=== PATIENT | female | born 1945 | race Caucasian/White ===

== ENCOUNTER 2017-08-31 15:34 | Emergency (ER) | payer MEDICARE ==
[2017-08-31 16:04] VITALS: TEMP 97.4
[2017-08-31] MEDS ORDERED: RX INFO: IV CONTRAST WAS GIVEN 1 EACH MISC MISCELLANE PRN (16:21)
[2017-08-31 16:48] LABS: Basophils # (A) 0.1 k/uL (0-0.2); Basophils % (A) 1 %; Eosinophils # (A) 0.3 k/uL (0-0.7); Eosinophils % (A) 4 %; HCT 46.8 % (34.0-46.0); HGB 15.1 gm/dL (11.4-16.0); Lymphocytes # (A) 1.9 k/uL (1.0-4.8); Lymphocytes % (A) 25 %; MCH 30.3 pg (25.0-35.0); MCHC 32.3 g/dL (31.0-37.0); MCV 93.9 fL (80.0-100.0); Mean Platelet Volume 7.8; Monocytes # (A) 0.4 k/uL (0-1.0); Monocytes % (A) 5 %; Neutrophils # (A) 4.7 k/uL (1.3-7.7); Neutrophils % (A) 63 %; Platelet Count 261 k/uL (150-450); RBC 4.98 m/uL (3.80-5.40); RDW 12.9 % (11.5-15.5); WBC 7.5 k/uL (3.8-10.6)
[2017-08-31 16:50] LABS: ALT 31 U/L (9-52); AST 32 U/L (14-36); Albumin 4.5 g/dL (3.5-5.0); Alkaline Phosphatase 133 U/L (38-126); Anion Gap 10 mmol/L; Blood Urea Nitrogen 25 mg/dL (7-17); Calcium 9.8 mg/dL (8.4-10.2); Carbon Dioxide 33 mmol/L (22-30); Chloride 99 mmol/L (98-107); Glucose 96 mg/dL (74-99); Potassium 3.7 mmol/L (3.5-5.1); Sodium 142 mmol/L (137-145); Total Bilirubin 1.5 mg/dL (0.2-1.3); Total Protein 7.7 g/dL (6.3-8.2)
[2017-08-31 16:54] LABS: D-Dimer 0.89 mg/L FEU (<0.60); Partial Thromboplastin Time 23.1 sec (22.0-30.0); Prothrombin Time 9.5 sec (9.0-12.0)
--- NOTE | 2017-08-31 16:54 | ED ---
General Adult HPI - General Chief complaint: Recheck/Abnormal Lab/Rx Stated complaint: Abn Labs Time Seen by Provider: 08/31/17 16:08 Source: patient, RN notes reviewed Mode of arrival: ambulatory Limitations: no limitations - History of Present Illness Initial comments: 72-year-old female presents emergency Department for abnormal labs. Patient states she went to her primary care physician's office yesterday that she's having some shortness of breath exertional shortness breath and had some chest pain a few days prior. Patient saw her primary care physician had laboratory, EKG and told that she was fine. Patient states that she has had some right leg swelling above her knee but states his been there for several weeks states it initially started in the popliteal region. Patient states she's had no prior DVTs. Patient states she was called and told that her lab was concerning for possible blood clot. Patient states she does not note this meant. Patient states that she does feel better today. She does admit that she is under a large amount of stress that she's had multiple problems at her household, other issues. - Related Data Home Medications Medication Instructions Recorded Confirmed Aspirin EC [Ecotrin Low Dose] 81 mg PO DAILY 08/31/17 08/31/17 Diazepam [Valium] 5 mg PO DAILY 08/31/17 08/31/17 Hydrochlorothiazide [Hydrodiuril] 25 mg PO DAILY 08/31/17 08/31/17 Allergies Allergy/AdvReac Type Severity Reaction Status Date / Time No Known Allergies Allergy Verified 08/31/17 16:37 Review of Systems ROS Statement: Those systems with pertinent positive or pertinent negative responses have been documented in the HPI. ROS Other: All systems not noted in ROS Statement are negative. Past Medical History Past Medical History: Hypertension History of Any Multi-Drug Resistant Organisms: None Reported Past Psychological History: No Psychological Hx Reported Smoking Status: Never smoker Past Alcohol Use History: None Reported Past Drug Use History: None Reported General Exam Limitations: no limitations General appearance: alert, in no apparent distress Head exam: Present: atraumatic, normocephalic, normal inspection Neck exam: Present: normal inspection. Absent: tenderness, meningismus, lymphadenopathy Respiratory exam: Present: normal lung sounds bilaterally. Absent: respiratory distress, wheezes, rales, rhonchi, stridor Cardiovascular Exam: Present: regular rate, normal rhythm, normal heart sounds. Absent: systolic murmur, diastolic murmur, rubs, gallop, clicks Extremities exam: Present: other (Right knee just superior there is a moderate area of swelling, no erythema there is mild tenderness over this region and popliteal region. Patient has full range of motion neurovascular intact) Skin exam: Present: warm, dry, intact, normal color. Absent: rash Course Vital Signs 08/31/17 08/31/17 16:00 19:03 Temperature 97.4 F L Pulse Rate 79 63 Respiratory 20 17 Rate Blood Pressure 139/67 165/85 O2 Sat by Pulse 98 98 Oximetry Medical Decision Making - Medical Decision Making 72-year-old female presented emergency department for abnormal labs, elevated d- dimer. Patient, CT WHICH WAS NEGATIVE. PATIENT HAS NO CHEST PAIN OR SHORTNESS BREATH AT THIS TIME SHE DID COMPLAIN YESTERDAY SHE HAD NEGATIVE TROPONIN YESTERDAY NORMAL EKG, UPON IT WAS NEGATIVE. PATIENT WE DISCHARGED ADVISED TO FOLLOW-UP. - Lab Data Result diagrams: 08/31/17 16:20 08/31/17 16:20 Lab Results 08/31/17 08/31/17 08/31/17 Range/Units 16:20 16:20 16:20 WBC 7.5 (3.8-10.6) k/uL RBC 4.98 (3.80-5.40) m/uL Hgb 15.1 (11.4-16.0) gm/dL Hct 46.8 H (34.0-46.0) % MCV 93.9 (80.0-100.0) fL MCH 30.3 (25.0-35.0) pg MCHC 32.3 (31.0-37.0) g/dL RDW 12.9 (11.5-15.5) % Plt Count 261 (150-450) k/uL Neutrophils % 63 % Lymphocytes % 25 % Monocytes % 5 % Eosinophils % 4 % Basophils % 1 % Neutrophils # 4.7 (1.3-7.7) k/uL Lymphocytes # 1.9 (1.0-4.8) k/uL Monocytes # 0.4 (0-1.0) k/uL Eosinophils # 0.3 (0-0.7) k/uL Basophils # 0.1 (0-0.2) k/uL PT 9.5 (9.0-12.0) sec INR 1.0 (<1.2) APTT 23.1 (22.0-30.0) sec D-Dimer 0.89 H (<0.60) mg/L FEU Sodium 142 (137-145) mmol/L Potassium 3.7 (3.5-5.1) mmol/L Chloride 99 (98-107) mmol/L Carbon Dioxide 33 H (22-30) mmol/L Anion Gap 10 mmol/L BUN 25 H (7-17) mg/dL Creatinine 1.00 (0.52-1.04) mg/dL Est GFR (MDRD) Af Amer >60 (>60 ml/min/1.73 sqM) Est GFR (MDRD) Non-Af 54 (>60 ml/min/1.73 sqM) Glucose 96 (74-99) mg/dL Calcium 9.8 (8.4-10.2) mg/dL Total Bilirubin 1.5 H (0.2-1.3) mg/dL AST 32 (14-36) U/L ALT 31 (9-52) U/L Alkaline Phosphatase 133 H (38-126) U/L Troponin I (0.000-0.034) ng/mL Total Protein 7.7 (6.3-8.2) g/dL Albumin 4.5 (3.5-5.0) g/dL 08/31/17 Range/Units 16:20 WBC (3.8-10.6) k/uL RBC (3.80-5.40) m/uL Hgb (11.4-16.0) gm/dL Hct (34.0-46.0) % MCV (80.0-100.0) fL MCH (25.0-35.0) pg MCHC (31.0-37.0) g/dL RDW (11.5-15.5) % Plt Count (150-450) k/uL Neutrophils % % Lymphocytes % % Monocytes % % Eosinophils % % Basophils % % Neutrophils # (1.3-7.7) k/uL Lymphocytes # (1.0-4.8) k/uL Monocytes # (0-1.0) k/uL Eosinophils # (0-0.7) k/uL Basophils # (0-0.2) k/uL PT (9.0-12.0) sec INR (<1.2) APTT (22.0-30.0) sec D-Dimer (<0.60) mg/L FEU Sodium (137-145) mmol/L Potassium (3.5-5.1) mmol/L Chloride (98-107) mmol/L Carbon Dioxide (22-30) mmol/L Anion Gap mmol/L BUN (7-17) mg/dL Creatinine (0.52-1.04) mg/dL Est GFR (MDRD) Af Amer (>60 ml/min/1.73 sqM) Est GFR (MDRD) Non-Af (>60 ml/min/1.73 sqM) Glucose (74-99) mg/dL Calcium (8.4-10.2) mg/dL Total Bilirubin (0.2-1.3) mg/dL AST (14-36) U/L ALT (9-52) U/L Alkaline Phosphatase (38-126) U/L Troponin I <0.012 (0.000-0.034) ng/mL Total Protein (6.3-8.2) g/dL Albumin (3.5-5.0) g/dL Disposition Clinical Impression: Right leg swelling Disposition: HOME SELF-CARE Condition: Stable Instructions: Leg Edema (ED) Additional Instructions: Please return to the Emergency Department if symptoms worsen or any other concerns. Referrals: Shannon Foote MD [Primary Care Provider] - 1-2 days Time of Disposition: 19:11
--- NOTE | 2017-08-31 18:07 | US ---
EXAMINATION TYPE: US venous doppler duplex LE RT DATE OF EXAM: 08/31/2017 5:55 PM COMPARISON: NONE CLINICAL HISTORY: Pain. SIDE PERFORMED: Right TECHNIQUE: The lower extremity deep venous system is examined utilizing real time linear array sonog ashley with graded compression, doppler sonography and color-flow sonography. VESSELS IMAGED: External Iliac Vein (EIV) Common Femoral Vein Deep Femoral Vein Greater Saphenous Vein * Femoral Vein Popliteal Vein Small Saphenous Vein * Proximal Calf Veins (* superficial vessels) Right Leg: Negative for DVT Grayscale, color doppler, spectral doppler imaging performed of the deep veins of the right lower ext remity. There is normal flow, compressibility, vascular waveforms. No evidence of DVT right leg. IMPRESSION: No evidence of acute DVT in the right lower extremity.
--- NOTE | 2017-08-31 18:32 | CT ---
EXAMINATION TYPE: CT chest angio for PE DATE OF EXAM: 08/31/2017 COMPARISON: CT chest May 05, 2011 HISTORY: ELEVATED D-DIMER. SOB CT DLP: 380.2 mGycm. Automated Exposure Control for Dose Reduction was Utilized. CONTRAST: CTA scan of the thorax is performed with IV Contrast, patient injected with 66ml mL of Visipaque 320, pulmonary embolism protocol. MIP Images are created on CT scanner and reviewed. FINDINGS: LUNGS: There is mild underlying emphysematous change redemonstrated. There is mild peripheral reticulation and fibrosis redemonstrated most prominent in the lower lungs. There is no suspicious parenchymal nodule or mass. There is no suspicious new consolidation. There is no pleural effusion or pneumothorax seen. Tracheobronchial tree is patent. MEDIASTINUM: There is satisfactory enhancement of the pulmonary artery and its branches, there is no CT evidence for pulmonary embolism. There are no greater than 1 cm hilar or mediastinal lymph nodes. No significant pericardial effusion is seen. Cardiomegaly is identified OTHER: Cholecystectomy clips are seen. There is exaggerated thoracic kyphosis. There is hemangioma at T10 vertebra. There are additional smaller scattered osseous hemangiomas. There is moderate multilev el spurring in the spine. There is mild height loss or compression T12 level without suspicious lucen cy. IMPRESSION: 1. No CT evidence for pulmonary embolism. 2. Cardiomegaly with mild underlying emphysematous change and peripheral fibrosis redemonstrated. No suspicious acute pulmonary process.
[2017-08-31 19:09] VITALS: BP 165/85; PULSE 63; RESP 17
== END 2017-08-31 19:40 | disposition home or self-care (01) ==
LOC: EC 15:34
DX: M79.89 Other specified soft tissue disorders (principal); R06.02 Shortness of breath; R07.9 Chest pain, unspecified; R79.1 Abnormal coagulation profile; I10 Essential (primary) hypertension; Z79.899 Other long term (current) drug therapy; Z79.82 Long term (current) use of aspirin
CPT/HCPCS: 36415; 85379; 80053; 84484; 85025; 85610; 85730; 93971; 71275; 99283; Q9967